=== PATIENT | female | born 1975 | race Caucasian/White ===

== ENCOUNTER 2018-11-07 07:12 | Day surgery (SDC) | payer BC, OTHER ==
[2018-11-03 13:19] VITALS: BMI 25.5
--- NOTE | 2018-11-07 09:06 | HP ---
History & Physical Update - History History: No Change - Physical Physical: No Change - Assessment Assessment: No Change - Plan Plan: No Change
[2018-11-07] MEDS ORDERED: fentaNYL CITRATE 250 MCG/5 ML VIAL ONE (09:25)
[2018-11-07] MEDS ORDERED: ceFAZolin SODIUM 1 GM VIAL ONE (09:25)
[2018-11-07] MEDS ORDERED: LIDOCAINE HCL/PF 2% SDV 5ML VIAL ONE (09:25)
[2018-11-07] MEDS ORDERED: PROPOFOL 20 ML ONE ×2 (09:26)
[2018-11-07] MEDS ORDERED: MIDAZOLAM HCL 2 MG/2 ML SINGLE DOSE VIAL ONE (09:26)
[2018-11-07] MEDS ORDERED: ROCURONIUM BROMIDE 50 MG/5 ML SYRINGE ONE ×2 (09:26→10:24)
[2018-11-07] MEDS ORDERED: ceFAZolin SODIUM 1 GM VIAL IVPB ONE (09:45)
[2018-11-07] MEDS ORDERED: ONDANSETRON 4 MG/2 ML VIAL ONE (10:15)
[2018-11-07] MEDS ORDERED: DEXAMETHASONE SOD PHOSPHATE 4 MG/1 ML VIAL ONE (10:15)
[2018-11-07] MEDS ORDERED: NEOSTIGMINE METHYLSULFATE 0.5 MG/1 ML - 10 ML MDV ONE (11:15)
[2018-11-07] MEDS ORDERED: GLYCOPYRROLATE 0.2 MG/1 ML VIAL ONE (11:15)
[2018-11-07] MEDS ORDERED: KETOROLAC TROMETHAMINE 30 MG/1 ML VIAL ONE (11:58)
[2018-11-07] MEDS ORDERED: ONDANSETRON 4 MG/2 ML VIAL IVPUSH PRN (12:16)
[2018-11-07] MEDS ORDERED: PROMETHAZINE HCL 25 MG/1 ML VIAL IVPB PRN (12:16)
[2018-11-07] MEDS ORDERED: HYDROmorphone HCl 2 MG/ML VIAL ONE (12:17)
[2018-11-07] MEDS: HYDROmorphone HCl 2 MG/ML VIAL IM PRN ×2 (12:20→12:50)
[2018-11-07] MEDS: HYDROmorphone HCL CARPU-JECT 2 MG/1 ML DISP.SYRIN IVPUSH ONE ×3 (12:20→15:02)
[2018-11-07] MEDS ORDERED: IBUPROFEN 800 MG/8 ML IJ IVPB PRN (12:28)
[2018-11-07] MEDS ORDERED: ACETAMINOPHEN 325 MG TABLET (FP) PO PRN (12:28)
[2018-11-07] MEDS ORDERED: oxyCODONE HCL 5 MG TABLET PO PRN ×4 (12:28→19:39)
--- NOTE | 2018-11-07 12:32 | OP ---
Operative Note - Note: Operative Date: 11/07/18 Pre-Operative Diagnosis: menorrhagia Operation: Total Laparoscopic Hysterectomy, Bilateral Salpingectomy, Cystoscopy Findings: Normal appearing uterus, bilateral fallopian tubes and ovaries; bilateral ureteral jets, no sutures or injury to bladder on cystoscopy at the end of the case Post-Operative Diagnosis: Same as Pre-op Surgeon: Emelina Myrick Health Program Specialist: Kirit Lemon Anesthesiologist/ASSISTANT FITNESS MANAGER: Terri Michel Anesthesia: General Specimens Removed: uterus, cervix, bilateral fallopian tubes Estimated Blood Loss (mls): 50 Drains, Volume Out (mls): 100 (urine) Fluid Volume Replaced (mls): 1,400 Operative Report Dictated: Yes
[2018-11-07] MEDS: ACETAMINOPHEN 1000 MG/100 ML VIAL (NON FORMULARY) IVPB PRN ×2 (12:50→21:34)
[2018-11-07 13:59] LABS: HEMATOCRIT 37.8 % (32.4-45.2); HEMOGLOBIN 12.9 GM/dL (10.7-15.3); MCH 28.8 pg (25.7-33.7); MEAN CELL VOLUME 84.7 fl (80-96); PLATELET COUNT 255 K/MM3 (134-434); RBC 4.47 M/mm3 (3.60-5.2); RDW 14.3 % (11.6-15.6); WHITE BLOOD COUNT 17.4 K/mm3 (4.0-10.0)
[2018-11-07] MEDS: LACTATED RINGERS SOLUTION 1,000 ML IV SCH ×3 (14:00→21:34)
[2018-11-07] MEDS ORDERED: HYDROmorphone HCl 2 MG/ML VIAL IVPUSH ONE (14:25)
--- NOTE | 2018-11-07 21:24 | OP ---
DATE OF OPERATION: 11/07/2018 ATTENDING PHYSICIAN RESPONSIBLE FOR SIGNING REPORT: Emelina Myrick MD PREOPERATIVE DIAGNOSIS: Menorrhagia. POSTOPERATIVE DIAGNOSIS: Menorrhagia. SURGERY: Total laparoscopic hysterectomy, bilateral salpingectomy, and cystoscopy. SURGEON: Emelina Myrick MD INTRAVENOUS THERAPY NURSE: Kirit Lemon MD ANESTHESIA: Terri Michel MD: Anesthesia was general. ESTIMATED BLOOD LOSS: 50. URINE OUTPUT: 100. FLUIDS GIVEN: 1400 mL of lactated Ringer. SPECIMENS REMOVED: Uterus, cervix, bilateral fallopian tubes. INDICATIONS: The patient is a 43-year-old, 2, para 0, with history of menorrhagia, desiring definitive surgical management. She was counseled regarding risks, benefits, alternatives, and complications of procedure, including infection, bleeding, damage to surrounding organs, conversion to laparotomy. She expressed understanding. DESCRIPTION: She was brought to the operating room. When anesthesia was found to be adequate, patient was prepped and draped in normal sterile fashion, placed in dorsal lithotomy position using Gavin stirrups. A weighted speculum was placed into the patient's vagina. Anterior lip of the cervix was grasped using an Allis clamp. The cervix was gently dilated to accommodate a size 24 Hanks dilator and a medium size [employer]cul[employer] sales office assistant was placed in the intrauterine cavity, and the cold cup was placed over the cervix. Eddy was placed to gravity. Attention was brought to the abdomen. A 5-mm incision was made on the umbilicus and a laparoscope was placed under direct visualization using the Visiport optical trocar. The abdomen was insufflated to operating pressure of 18 mmHg with carbon dioxide gas. Attention was brought to the right lower quadrant. A 5-mm trocar was placed under direct visualization. Attention was brought to the left lower quadrant, where in a similar fashion, a 5-mm trocar was placed under direct visualization. Attention was brought to the left adnexa. The uteroovarian ligament was ligated using LigaSure. The fallopian tube was dissected up to the broad ligament and the round ligament was then ligated using the Harmonic electro-scalpel. The anterior leaf of the broad ligament was then transected down to the level of the internal cervical os. The uterine vessels were skeletonized and the uterine vessels were isolated and ligated using the LigaSure. The bladder flap was then taken down, was then developed using the Harmonic electro-scalpel. Attention was brought to the right adnexa. The uteroovarian ligament was then transected using the LigaSure and the fallopian tube was dissected from the broad ligament using the LigaSure, and the round ligament was transected using LigaSure, and the anterior leaf of the broad ligament was dissected down to the level of the internal os, and the uterine vessels were then skeletonized and ligated using the LigaSure. The colpotomy was then performed using the Harmonic electro-scalpel, and this was circumferentially excised using the Harmonic. The uterus was then removed from the abdominal cavity through to colpotomy. A 2-0 V-Loc suture was placed into the colpotomy, into the abdominal cavity. The colpotomy was then closed using the 2-0 V-Loc suture in a running locked fashion. Copious irrigation was performed. Good hemostasis was noted. The suture needle was then removed from the abdominal cavity intact. Cystoscopy was performed. Bilateral ureteral jets were noted. No injury or sutures were noted into the bladder. The abdomen was re-insufflated. Good hemostasis was noted from all pedicles. Copious irrigation was performed. Pneumoperitoneum was released. All instruments were removed from the patient's abdomen. Trocars were removed under direct visualization. The laparoscopic port sites were all closed using 4-0 Monocryl in interrupted fashion. The patient was awoken from anesthesia and brought to recovery room in stable condition. Joel [id number]
--- NOTE | 2018-11-08 08:45 | PN ---
Progress Note (SOAP) - Subjective History of Present Illness: Patient without acute complaints. Tolerating oral intake without nausea or vomiting. Ambulating, voiding without issue. Denies fevers or chills. Denies chest pain, shortness of breath. Pain well controlled with oral medication. Passing flatus. - Current Medications Current Medications: Active Medications Acetaminophen (Tylenol -) 650 mg PO Q6H PRN PRN Reason: FEVER Acetaminophen (Ofirmev Injection -) 1,000 mg IVPB Q6H PRN PRN Reason: PAIN LEVEL 1 - 3 Last Admin: 11/07/18 21:34 Dose: 1,000 mg Lactated Ringer's (Lactated Ringers Solution) 1,000 mls @ 125 mls/hr IV ASDIR CHEYANNE Last Admin: 11/07/18 21:34 Dose: 125 mls/hr Ibuprofen (Caldolor Injection -) 600 mg IVPB Q6H PRN PRN Reason: FEVER Ondansetron HCl (Zofran Injection) 4 mg IVPUSH Q6H PRN PRN Reason: NAUSEA AND/OR VOMITING Oxycodone HCl (Roxicodone -) 5 mg PO Q4H PRN PRN Reason: PAIN LEVEL 1-5 Oxycodone HCl (Roxicodone -) 10 mg PO Q4H PRN PRN Reason: PAIN LEVEL 6-10 - Objective Vital Signs: Vital Signs Temperature 99.2 F 11/08/18 06:00 Pulse Rate 72 11/08/18 06:00 Respiratory Rate 18 11/08/18 06:00 Blood Pressure 119/76 11/08/18 06:00 O2 Sat by Pulse Oximetry (%) 100 11/07/18 15:00 Constitutional: Yes: Well Nourished, No Distress, Calm Cardiovascular: Yes: Regular Rate and Rhythm Respiratory: Yes: Regular, CTA Bilaterally Gastrointestinal: Yes: Normal Bowel Sounds, Soft, Tenderness (mild incisional tenderness) Genitourinary: Yes: Vaginal Bleeding (scant) Extremities: Yes: WNL Edema: No Wound/Incision: Yes: Dressing Dry and Intact Psychiatric: Yes: Alert, Oriented Labs Lab Results: CBC, BMP 11/07/18 12:50 Assessment/Plan 43 yo POD # 1 s/p total laparoscopic hysterectomy, bilateral salpingectomy, cystoscopy, afebrile, vital signs stable, doing well 1. Continue routine postoperative care. 2. ID - afebrile, will continue to monitor vital signs. 3. Cardiovascular - No acute issues 4. Pulmonary - Encourage incentive spirometer 5. Hematology - Hemoglobin / Hematocrit with mild asymptomatic anemia 6. Urinary - urine output adequate overnight; Creatinine pending, voiding 7. Gastroinestinal - no signs of ileus at this time Will advance diet 8. Gynecology - will follow up pathology 9. Anticipate discharge home later today as she is able to ambulate, adequate pain control and urinating without issue.
[2018-11-08 09:20] LABS: BLOOD UREA NITROGEN 10.1 mg/dL (7-18); CALCIUM 8.3 mg/dL (8.5-10.1); CREATININE 0.7 mg/dL (0.55-1.3); POTASSIUM 3.8 mmol/L (3.5-5.1)
--- NOTE | 2018-11-08 12:48 | PN ---
Progress Note (short form) - Note Progress Note: Anesthesia POD#1 S/P Lap Cholecystectomy under GA VSS,no N/V,pain is under control. No complications to anesthesia seen. Terri Michel MD.
[2018-11-08 13:08] VITALS: BP 109/69; PULSE 73; TEMP 98.9
--- NOTE | 2018-11-09 17:22 | PATH ---
Surgical Pathology Report Patient Name: NAVJOT EASON [facility]. Rec. #: [id number] /Age/Gender: 1975 (Age: 43) / F Account: [id number] Location: AMBULATORY SURG Taken: 11/07/2018 Received: 11/07/2018 Reported: 11/09/2018 Physicians: Emelina Myrick Specimen(s) Received UTERUS, CERVIX, BILATERAL FALLOPIAN TUBES Clinical History Menorrhagia Final Diagnosis UTERUS, CERVIX, BILATERAL FALLOPIAN TUBES, LAPAROSCOPIC TOTAL HYSTERECTOMY AND BILATERAL SALPINGECTOMY: 108 G UTERUS. SECRETORY ENDOMETRIUM. UNREMARKABLE MYOMETRIUM AND SEROSA. CERVIX WITH SQUAMOUS METAPLASIA. BILATERAL FALLOPIAN TUBES WITH VASCULAR CONGESTION (INCLUDING FULL LUMINAL PORTION AND FIMBRIATED END). Electronically Signed Carmen Swanson M.D. Gross Description Received in formalin labeled "uterus, cervix, bilateral fallopian tubes," is a 108 g uterus with an attached cervix and bilateral attached fallopian tubes. The specimen measures 9 cm from superior to inferior, 5.7 cm from left to right and 4.5 cm from anterior to posterior. The serosa is light-conde and smooth. The attached cervix measures 3.5 cm in length and averages 2.7 cm in diameter. The ectocervix is light-mae, smooth and glistening. The endocervix is unremarkable. The endometrial cavity measures 4 cm in length and 2.5 cm from cornu to cornu. The endometrium is light-red and averages 0.2 cm in thickness. The myometrium is light-pink and measures up to 2.1 cm in thickness. No intramural nodules are identified. The left fimbriated fallopian tube measures 4.8 cm in length. The outer surface is conde purple and smooth. Sectioning reveals an unremarkable lumen. The right fimbriated fallopian tube measures 3.6 cm in length. The outer surface is conde purple and smooth. Sectioning reveals an unremarkable lumen. Dry Kiln Worker sections are submitted in 10 cassettes as follows: 1-anterior cervix; 2-posterior cervix; 8-8-[id number] endomyometrium; 3-4-qofcikkpj endomyometrium; 7-left fallopian tube fimbria; 8-cross sections of left fallopian tube; 9-right fallopian tube fimbria; 10-cross sections of right fallopian tube. DL/11/08/2018 saudi/11/08/2018
== END 2018-11-08 12:00 | disposition home or self-care (01) ==
LOC: JASUSAT 07:12 → EDSTATUS 09:00 → J3W 14:38 → JASUSAT 11-08 12:00
PROVIDERS: ATTEND Obstetrics & Gynecology
PROC: 0UT74ZZ Resection of Bilateral Fallopian Tubes, Percutaneous Endoscopic Approach (ICD-10-PCS; 2018-11-07)
PROC: 0UT94ZZ Resection of Uterus, Percutaneous Endoscopic Approach (ICD-10-PCS; principal; 2018-11-07 09:00)
PROC: 0UT24ZZ Resection of Bilateral Ovaries, Percutaneous Endoscopic Approach (ICD-10-PCS; 2018-11-07 09:00)
DX: N92.0 Excessive and frequent menstruation with regular cycle (principal)
CPT/HCPCS: 36415; 80048; 84703; 85027; 86850; 86900; 86901; 88305-TC; 94760; J0131